=== PATIENT | female | born 1985 | race Caucasian/White ===

== ENCOUNTER 2016-07-14 18:36 | Inpatient (IN) | payer BC ==
[2016-07-14 19:50] LABS: Hematocrit 34 % (35-47); Hemoglobin 11.4 g/dl (12.0-16.0); Mean Corpuscular HGB Conc 33 g/dl (31-36); Mean Corpuscular Hemoglobin 29 pg (27-31); Mean Corpuscular Volume 88 fL (80-97); Mean Platelet Volume 11 um3 (7.4-10.4); Red Blood Count 3.91 10^6/ul (4.0-5.4); Red Cell Distribution Width 14 % (10.5-15)
[2016-07-14] MEDS ORDERED: Oxytocin in LR* 20 UNITS/1,000 ML BAG IVPB SCH (20:00)
[2016-07-14 20:24] LABS: Albumin 2.9 g/dL (3.2-5.2); BUN/Creatinine Ratio 16.2 (8-20); Calcium 8.7 mg/dL (8.6-10.3); EGFR African American 118.5 (>60); EGFR Non-African American 92.1 (>60); Potassium 3.5 mmol/L (3.5-5.0); Total Bilirubin 0.3 mg/dL (0.2-1.0); Total Protein 5.9 g/dL (6.4-8.9); Uric Acid 6.8 mg/dL (2.3-6.6)
[2016-07-15] MEDS ORDERED: OBEPIDURAL* 250 ML ONE (01:44)
[2016-07-15] MEDS ORDERED: EPHEDrine (Pressors)* 50 MG/ML VIAL IV PUSH PRN (02:44)
[2016-07-15] MEDS ORDERED: Phenylephrine IV* 40 MCG/ML 10 ML SYRINGE IV PUSH PRN ×2 (02:44)
[2016-07-15] MEDS ORDERED: OBEPIDURAL* 250 ML EPIDURAL SCH (03:00)
[2016-07-15] MEDS ORDERED: Acetaminophen TAB* 325 MG PO PRN (09:38)
[2016-07-15] MEDS ORDERED: oxyCODONE/Acetamin 5/325 MG* TAB PO PRN (09:38)
[2016-07-15] MEDS ORDERED: Dibucaine 1% 28.35 GM TUBE PR PRN (09:38)
[2016-07-15] MEDS ORDERED: Glycerin ADULT SUPP PR PRN (09:38)
[2016-07-15] MEDS ORDERED: Oxytocin in LR* 20 UNITS/1,000 ML BAG IVPB SCH (10:00)
[2016-07-15] MEDS: Ibuprofen TAB* 600 MG PO PRN ×2 (12:01→18:45)
[2016-07-15] MEDS: Witch Hazel PAD* JAR TOPICAL PRN (12:02)
[2016-07-15] MEDS ORDERED: Simethicone CHEW TAB* 80 MG PO SCH (12:30)
[2016-07-15] MEDS: Docusate CAP* 100 MG PO SCH ×2 (14:46→22:00)
[2016-07-16] MEDS: Ibuprofen TAB* 600 MG PO PRN ×4 (00:30→18:06)
[2016-07-16 07:12] LABS: Hematocrit 31 % (35-47); Hemoglobin 10.2 g/dl (12.0-16.0); Mean Corpuscular HGB Conc 33 g/dl (31-36); Mean Corpuscular Hemoglobin 29 pg (27-31); Mean Corpuscular Volume 89 fL (80-97); Mean Platelet Volume 11 um3 (7.4-10.4); Red Blood Count 3.52 10^6/ul (4.0-5.4); Red Cell Distribution Width 14 % (10.5-15); White Blood Count 12.7 10^3/ul (3.5-10.8)
[2016-07-16] MEDS: Docusate CAP* 100 MG PO SCH ×3 (08:50→21:00)
[2016-07-16] MEDS ORDERED: Ferrous Gluconate TAB* 324 MG TAB PO SCH (09:00)
--- NOTE | 2016-07-16 14:28 | PTEDU ---
Patient Name: RADHA BRUNO RADHA BRUNO selected video: Follow Me Mum: [facility] [place] to view on 01/2017 at 2:27:29 PM from [email or web address]
[2016-07-16] MEDS: Witch Hazel PAD* JAR TOPICAL PRN (21:01)
[2016-07-17] MEDS: Ibuprofen TAB* 600 MG PO PRN ×2 (00:34→07:34)
[2016-07-17 08:36] VITALS: BP 150/73
--- NOTE | 2016-07-17 08:38 | PTEDU ---
Patient Name: RADHA BRUNO RADHA BRUNO selected video: Never Ever Shake a Baby to view on 07/17/2016 at 8:37:14 AM from [email or web address]
[2016-07-17] MEDS: Docusate CAP* 100 MG PO SCH (09:12)
== END 2016-07-17 11:39 | disposition home or self-care (01) | DRG 560 ==
LOC: MCHOBOUT 18:36 → MCHOB 18:37
PROVIDERS: ADMIT Midwife; ATTEND Midwife
PROC: 10E0XZZ Delivery of Products of Conception, External Approach (ICD-10-PCS; principal; 2016-07-15)
PROC: 0DQP0ZZ Repair Rectum, Open Approach (ICD-10-PCS; 2016-07-15)
DX: O24.429 Gestational diabetes mellitus in childbirth, unspecified control (principal); O70.3 Fourth degree perineal laceration during delivery; O99.344 Other mental disorders complicating childbirth; F41.9 Anxiety disorder, unspecified; Z3A.37 37 weeks gestation of pregnancy; Z37.0 Single live birth; O26.893 Other specified pregnancy related conditions, third trimester
CPT/HCPCS: 36415; 80053; 84112; 84550; 85025; 86850; 86900; 86901; 99213; A9270-GY; G0463